=== PATIENT | male | born 1965 | race American Indian/Alaskan Native ===

== ENCOUNTER 2019-06-02 12:40 | Outpatient (CLI) | payer MEDICARE ==
[2019-06-02 13:14] LABS: Hematocrit 51.5 % (35.5-45.6); Hemoglobin 16.8 gm/dl (11.8-15.2); Mean Corpuscular HGB Conc 33 % (32-34); Mean Corpuscular Volume 89 fl (84-94); Platelet Count 291 K/mm3 (140-440); Red Blood Count 5.79 M/mm3 (3.65-5.03); Red Cell Distribution Width 13.7 % (13.2-15.2)
[2019-06-02 13:36] LABS: Alanine Aminotransferase 20 units/L (7-56); Albumin 4.3 g/dL (3.9-5); BUN/Creatinine Ratio 8; Blood Urea Nitrogen 8 mg/dL (9-20); Calcium 9.7 mg/dL (8.4-10.2); Hemolysis Index 7
== END 2019-06-02 12:41 | disposition home or self-care (01) ==
LOC: LAB 12:40
PROVIDERS: ATTEND Specialist
DX: G40.219 Localization-related (focal) (partial) symptomatic epilepsy and epileptic syndromes with complex partial seizures, intractable, without status epilepticus (principal)
CPT/HCPCS: 36415; 80053; 85027